=== PATIENT | male | born 1965 | race Caucasian/White ===

== ENCOUNTER 2025-07-06 20:38 | Emergency (ER) | payer OTHER, SELFPAY ==
[2025-07-06 20:44] VITALS: BP 122/76
[2025-07-06 21:33] VITALS: BMI 32.1
--- NOTE | 2025-07-06 23:19 | ED.GENMED ---
History of Present Illness
General
Chief Complaint: Fall
Source: patient
Exam Limitations: none
Time Seen by Provider: 07/06/25 22:46
History of Present Illness
History of Present Illness:
See MDM
Past History
Past History
ED Past Medical History: None
ED Past Surgical History: None
Social History
Tobacco: Non-smoker
Alcohol: Daily
Phy Exam
Physical Exam
Physical Exam:
See MDM
Course
Orders/Labs/Results
Orders:
Orders
07/06/25 20:52
CT Cervical Spine W/o Iv Contr Urgent
Comment:
Reason For Exam: fall 9 hours ago, frontal head strike
CT Head W/o Iv Contrast Urgent
Comment:
Reason For Exam: fall 9 hours ago, frontal head strike
07/06/25 23:18
Amoxicillin 875 mg/Clav 125 mg [Augmentin 875 mg/125 mg] 1 tablet PO NOW STA
Vital Signs
Initial and Last Documented VS:
Initial Vital Signs
Temp Pulse Resp BP Pulse Ox
98.1 F 98 18 122/76 97
07/06/25 20:44 07/06/25 20:44 07/06/25 20:44 07/06/25 20:44 07/06/25 20:44
Last Documented Vital Signs
Temp Pulse Resp BP Pulse Ox
98.1 F 98 18 122/76 97
07/06/25 20:44 07/06/25 20:44 07/06/25 20:44 07/06/25 20:44 07/06/25 20:44
Procedures
Laceration Closure
Anterior Medial Forehead:
Status of Wound: dirty
Size of Wound in cm: 5
Description of Wound Edges: ragged
Preparation: cleaned with Betadine
Anesthesia: 1% Lidocaine with epi
Revision/Debridement: minor revision
Wound exploration: explored to base- no FB
Type of Closure: layered closure
Skin Closure Material: 5-0 nylon (x 12) and 4-0 vicryl (x 4)
Number of sutures: 16
MDM/Problems Addressed
Differential Diagnosis Includes:
Note:
CHIEF COMPLAINT(S)
Facial abrasion due to a fall.
HISTORY OF PRESENT ILLNESS
The patient is a 59-year-old male who presented with a facial abrasion resulting from a fall that occurred approximately 24 hours prior to the visit. The patient explained that during the fall, he was carrying objects in his hands and was unable to
brace himself properly, leading to the facial injury. He described the injury as a 'nasty abrasion' and noted that the skin was torn off. His friends brought him into the emergency department for evaluation. The patient is unsure of his tetanus
vaccination status, recalling his last shot being around 30 years ago, but he refused a tetanus booster.
On exam, there is a large gaping wound to his mid forehead. Given the duration of time since the injury, I discussed that this may be problematic closure with significant scar formation and possible infection. Patient acknowledges this. Patient
did consent to the procedure.
PAST MEDICAL AND SURGICAL HISTORY
History of a torn meniscus and problematic left ankle.
PHYSICAL EXAM
General: Alert, no acute distress.
Skin: 5 cm ragged deep laceration to mid forehead with flap
Head: Normocephalic, atraumatic
Neck: Appears supple, trachea midline.
Eyes, Ears, Nose, Mouth, and Throat: Moist mucous membranes
Cardiovascular: No signs of cyanosis
Respiratory: Respirations are non-labored.
Abdomen: Non-distended
Musculoskeletal: No deformities
Neurological: No focal neurological deficit observed.
Psychiatric: Cooperative, appropriate mood and affect.
PLAN
- The patient will receive local anesthesia to numb the area before suturing the laceration.
- Antibiotics to be administered post-procedure to prevent infection.
- No tetanus booster as per the patient�s refusal.
DIFFERENTIAL DIAGNOSIS
The Differential Diagnosis includes, in no particular order and is not limited to:
- Facial abrasion
- Nasal fracture (minor or chip fracture)
- Soft tissue injury
- Contusion
- Sprain due to fall
- Possible meniscus re-injury
- Ankle ligament injury
- Superficial infection risk
- Inadequate wound healing
- Pain management issues
DISPOSITION
Discharge with instructions for wound care and monitoring for signs of infection.
MEDICAL DECISION MAKING
Number and Complexity of Problems Addressed: Chronic conditions affecting care include a history of a torn meniscus and problematic left ankle.
Data:
- Category 1: My independent interpretation of the CT scan indicates no facial or nasal fracture.
- Category 2: No additional data sources were utilized.
- Category 3: No additional discussions with other healthcare providers were necessary.
-Risk:
Care significantly affected by Social Determinants of Health: The patients refusal of a tetanus booster due to personal preference.
DIAGNOSIS
- Facial abrasion due to fall (S00.81XA)
- History of torn meniscus (M23.2)
- Problematic left ankle (M25.572)
SUMMARY OF ENCOUNTER
A 59-year-old male presented to the emergency department with a significant facial abrasion due to a fall. The patient delayed seeking care, causing concerns about a worse cosmetic outcome and an increased risk of infection. The patient is aware of
these concerns. A discussion was held about the importance of follow-up with a plastic surgeon. The patient was started on amoxicillin and clavulanate (Augmentin) to prevent infection and declined a tetanus booster. A CT scan of the head showed no
signs of bleeding.
DISPOSITION
Discharge.
ASSESSMENT
The patient is at risk for infection and potential cosmetic issues due to the laceration delayed treatment. No acute injury to the head was found on CT.
EMERGENCY TREATMENTS ADMINISTERED
Started on amoxicillin and clavulanate (Augmentin).
PLAN
The patient should follow up with a plastic surgeon for further evaluation of the facial abrasion. Continue antibiotic treatment to prevent infection and monitor for signs of infection or poor healing.
INDEPENDENT REVIEW OF LABS AND INTERPRETATION OF TESTS
- My independent interpretation of the CT scan of the head is that there is no evidence of bleeding or acute injury.
PATIENT EDUCATION AND COUNSELING
Discussed the importance of follow-up with a plastic surgeon for further evaluation and to address potential cosmetic concerns. Informed the patient about the risk of infection due to delayed treatment and the importance of completing the course of
prescribed antibiotics.
FOLLOW-UP INSTRUCTIONS
The patient should arrange for follow-up with a plastic surgeon.
MEDICAL DECISION MAKING
1. Number and Complexity of Problems Addressed: Chronic conditions affecting care include a history of a torn meniscus and problematic left ankle. Differential diagnosis includes facial abrasion, nasal fracture, soft tissue injury, contusion, sprain
due to fall, possible meniscus re-injury, ankle ligament injury, superficial infection risk, inadequate wound healing, and pain management issues.
2. Data:
- Category 1: My independent interpretation of the CT scan of the head indicates no evidence of bleeding.
3. Risk: The patient is at risk for infection due to the delay in seeking care and refusal of a tetanus booster. Prescription medication was prescribed (amoxicillin and clavulanate) to prevent infection. Care significantly affected by the patients
refusal of a tetanus booster due to personal preference.
DIAGNOSIS
- Complex facial laceration
- History of torn meniscus (M23.2)
- Problematic left ankle (M25.572)
*Pulse Oximetry
SaO2: 97
Oxygen Mode of Delivery: Room air
Patient hypoxic: no
*Critical Care Note
Total Time (30-74mins, 75-104mins- exclusive of procedures): Not Applicable
ED Attending Note
-
Portions of this chart may have been created with voice recognition software.� Occasional wrong word or��sound alike� substitutions may have occurred due to the inherent limitations of voice recognition software.
Discharge Plan
Departure
Patient Disposition: Home (Routine Discharge)
Date of Disposition: 07/06/25
Time of Disposition: 23:23
Patient with high blood pressure during this ER visit?: No
Discharge Problem:
Complex laceration of forehead
Instructions: Laceration Repair With Stitches (DC)
Prescriptions:
New
amoxicillin-pot clavulanate 875-125 mg tablet
1 tab PO BID Qty: 14 0RF
Referrals:
Pcp Selection Not Required, [Other]
NONE,* [Family Provider, Internal Medicine]
Activity Restrictions/Additional Instructions:
Keep wound clean and dry, change dressing if it becomes soiled or wet. Watch for signs of infection: fever over 100.5', increasing pain, red streaks around wound, swelling, drainage of pus, or bad smell. If any of these happen, return to ED
promptly. Return to ED or make an appointment with your doctor to have the 12 sutures removed in 10 days. All wounds may scar, however you may reduce the appearance of scarring by avoiding sun exposure to the scar and applying skin moisturizer with
spf protection to the scar once the wound is healed.
As we discussed, I recommend follow-up with the plastic surgeon
Interventions
Interventions:
*Risk Screen - Suicide Last Done: 07/06/25 20:44
*General Assessment Last Done: 07/06/25 20:44
*Neglect/Abuse Screening Last Done: 07/06/25 21:32
*ED COVID-19 Vaccine History Last Done: 07/06/25 21:32
*ED Influenza Vaccine History Last Done: 07/06/25 21:32
ED-Musculoskeletal Assessment Last Done: 07/06/25 21:32
ED- Neurological Assessment Last Done: 07/06/25 21:32
ED-Skin Assessment Last Done: 07/06/25 21:32
Discharge Date and Time
Print Language: LIBERIAN
[2025-07-06] MEDS: AUGMENTIN 875 MG/125 MG 1 TABLET PO (23:32)
[2025-07-06 23:38] VITALS: BP 114/73
== END 2025-07-06 23:39 | disposition home or self-care (01) ==
LOC: EMR 20:38
PROVIDERS: EMERGENCY PHYSICIAN Student in an Organized Health Care Education/Training Program
DX: S01.81XA Laceration without foreign body of other part of head, initial encounter (principal); W19.XXXA Unspecified fall, initial encounter
CPT/HCPCS: 99284; 12052; 70450; 72125